=== PATIENT | male | born 1960 | race Two or more races ===

== ENCOUNTER 2016-12-09 08:49 | Inpatient (IN) | payer MEDICAID ==
[~2016-12-09] VITALS: Ht 165.1 cm; Wt 70.3 kg
[2016-12-09] MEDS ORDERED: NITROGLYCERIN PACKET 1 GM PACKET TD ONE (09:00)
[2016-12-09] MEDS ORDERED: ASPIRIN 325 MG TABLET PO ONE (09:00)
[2016-12-09] MEDS ORDERED: ASPIRIN 81 MG TAB.CHEW ONE ×2 (09:06→09:09)
[2016-12-09] MEDS ORDERED: NITROGLYCERIN PACKET 1 GM PACKET ONE (09:06)
[2016-12-09 09:26] LABS: BASOPHILS % (AUTO) 0.8 % (0.0-2.0); EOSINOPHILS # (AUTO) 0.2 /CMM (0.0-0.7); EOSINOPHILS % (AUTO) 2.7 % (0.0-6.0); HEMATOCRIT 43 % (39-51); HEMOGLOBIN 14.5 g/dL (13.5-17.5); LYMPHOCYTES # (AUTO) 2.3 /CMM (0.8-4.8); LYMPHOCYTES % (AUTO) 35.6 % (20.0-44.0); MEAN CORPUSCULAR HEMOGLOBIN 31 PG (26.0-33.0); MEAN CORPUSCULAR HGB CONC 34 g/dl (31.0-36.0); MEAN CORPUSCULAR VOLUME 91 fL (80-96); MONOCYTES # (AUTO) 0.4 /CMM (0.1-1.30); NEUTROPHILS # (AUTO) 3.5 /CMM (1.8-8.9); NEUTROPHILS % (AUTO) 54.9 % (43.0-81.0); PLATELET COUNT (AUTO) 165 /CMM (150-450); RDW COEFFICIENT OF VARIATION 13.6 (11.5-15.0); RED BLOOD CELL COUNT(AUTO) 4.69 MIL/uL (4.5-6.0); WHITE BLOOD COUNT (AUTO) 6.4 K/uL (4.3-11.0)
[2016-12-09 09:34] LABS: CALCIUM, SERUM 8.5 mg/dL (8.5-10.1); CARBON DIOXIDE 28 mmol/L (21-32); CHLORIDE 104 mmol/L (98-107); CREATININE 1.3 mg/dL (0.6-1.3); GLUCOSE 141 mg/dL (74-106); POTASSIUM 3.6 mmol/L (3.5-5.1); SODIUM SERUM 143 mmol/L (136-145); UREA NITROGEN, BLOOD 14 mg/dL (7-18)
[2016-12-09 09:42] LABS: TROPONIN I < 0.017 ng/mL (0.00-0.056)
[2016-12-09] MEDS ORDERED: LORAZEPAM INJ 2 MG/ML VIAL ONE (10:18)
[2016-12-09] MEDS ORDERED: LORAZEPAM INJ 2 MG/ML VIAL IV ONE (10:30)
[2016-12-09 10:39] LABS: D-DIMER 0.19 mg/L(FEU (0.17-0.50); INR 0.92 (0.87-1.13); PROTHROMBIN TIME 9.8 SECS (9.5-12.7)
[2016-12-09 11:45] VITALS: BP 110/78
[2016-12-09] MEDS ORDERED: LORAZEPAM 1 MG TABLET PO PRN (14:30)
[2016-12-09] MEDS ORDERED: NITROGLYCERIN 0.4 MG/TAB BOTTLE SL PRN (14:30)
[2016-12-09] MEDS ORDERED: ONDANSETRON HCL/PF 4 MG/2 ML VIAL IVP PRN (14:30)
[2016-12-09] MEDS ORDERED: DOCUSATE SODIUM 100 MG CAPSULE PO PRN (14:30)
[2016-12-09] MEDS ORDERED: MORPHINE SULFATE INJ 2 MG/ML DISP.SYRIN IV PRN (14:30)
[2016-12-09] MEDS: IV NS 0.9% 1,000 ML IV PRN (15:36)
[2016-12-09 16:00] VITALS: BP 102/63
[2016-12-09 20:00] VITALS: BP 118/75
[2016-12-09] MEDS: CARVEDILOL 6.25 MG TABLET PO SCH (21:00)
[2016-12-09] MEDS: SIMVASTATIN 20 MG TABLET PO SCH (22:17)
[2016-12-09] MEDS: ACETAMINOPHEN 325 MG TABLET PO PRN (22:20)
[2016-12-10] VITALS (9 sets, daily range): BP systolic 101–125; BP diastolic 61–76
[2016-12-10] MEDS: IV NS 0.9% 1,000 ML IV PRN ×2 (03:30→16:20)
[2016-12-10 06:50] LABS: BASOPHILS % (AUTO) 0.4 % (0.0-2.0); EOSINOPHILS # (AUTO) 0.1 /CMM (0.0-0.7); EOSINOPHILS % (AUTO) 1.4 % (0.0-6.0); HEMATOCRIT 40 % (39-51); HEMOGLOBIN 13.4 g/dL (13.5-17.5); LYMPHOCYTES # (AUTO) 1.3 /CMM (0.8-4.8); LYMPHOCYTES % (AUTO) 15.2 % (20.0-44.0); MEAN CORPUSCULAR HEMOGLOBIN 31 PG (26.0-33.0); MEAN CORPUSCULAR HGB CONC 34 g/dl (31.0-36.0); MEAN CORPUSCULAR VOLUME 92 fL (80-96); MONOCYTES # (AUTO) 0.4 /CMM (0.1-1.30); MONOCYTES % (AUTO) 5.3 % (2.0-12.0); NEUTROPHILS # (AUTO) 6.4 /CMM (1.8-8.9); NEUTROPHILS % (AUTO) 77.7 % (43.0-81.0); PLATELET COUNT (AUTO) 148 /CMM (150-450); RDW COEFFICIENT OF VARIATION 13.8 (11.5-15.0); RED BLOOD CELL COUNT(AUTO) 4.31 MIL/uL (4.5-6.0); WHITE BLOOD COUNT (AUTO) 8.3 K/uL (4.3-11.0)
[2016-12-10 07:12] LABS: CALCIUM, SERUM 8.2 mg/dL (8.5-10.1); PHOSPHORUS 3.3 mg/dL (2.5-4.9); POTASSIUM 4.1 mmol/L (3.5-5.1)
[2016-12-10 07:48] LABS: INR 0.96 (0.87-1.13); PROTHROMBIN TIME 10.3 SECS (9.5-12.7)
[2016-12-10] MEDS: ACETAMINOPHEN 325 MG TABLET PO PRN ×2 (08:12→15:13)
[2016-12-10] MEDS: ASPIRIN 81 MG TAB.CHEW PO SCH (08:19)
[2016-12-10] MEDS: CARVEDILOL 6.25 MG TABLET PO SCH ×2 (08:19→21:22)
[2016-12-10] MEDS ORDERED: ACETAMINOPHEN 650 MG/20.3 ML UDC NG PRN (12:00)
[2016-12-10] MEDS ORDERED: UREA 10% -AHA 4% CREAM 57 GM TUBE TP ONE (12:00)
[2016-12-10] MEDS: MORPHINE SULFATE INJ 2 MG/ML DISP.SYRIN IV PRN (20:32)
[2016-12-10] MEDS: SIMVASTATIN 20 MG TABLET PO SCH (21:22)
[2016-12-10] MEDS ORDERED: MIRTAZAPINE 15 MG TABLET PO SCH (22:00)
[2016-12-11] MEDS: IV NS 0.9% 1,000 ML IV PRN (01:05)
[2016-12-11] MEDS: MORPHINE SULFATE INJ 2 MG/ML DISP.SYRIN IV PRN ×2 (01:21→05:47)
[2016-12-11 08:00] VITALS: BP 103/67
[2016-12-11 08:58] VITALS: BP 103/67
[2016-12-11] MEDS: CARVEDILOL 6.25 MG TABLET PO SCH (08:58)
[2016-12-11] MEDS: ASPIRIN 81 MG TAB.CHEW PO SCH (08:58)
[2016-12-11] MEDS ORDERED: MIRT15TA PO (10:38)
== END 2016-12-11 13:30 | disposition home or self-care (01) | DRG 203 ==
LOC: ER 08:51 → TELE 11:36 → MED 12-10 20:01
PROVIDERS: ADMIT Internal Medicine; ATTEND Internal Medicine
DX: R07.89 Other chest pain (principal); F33.2 Major depressive disorder, recurrent severe without psychotic features; F43.20 Adjustment disorder, unspecified; E86.0 Dehydration; F41.0 Panic disorder [episodic paroxysmal anxiety]; R73.03 Prediabetes; Z63.4 Disappearance and death of family member; Z79.82 Long term (current) use of aspirin; I95.1 Orthostatic hypotension; Z98.890 Other specified postprocedural states
CPT/HCPCS: 36415; 70450-TC; 71010-TC; 80048-TC; 80061-TC; 82150-TC; 83690-TC; 83735-TC; 84100-TC; 84484-TC; 85025-TC; 85378-TC; 85610-TC; 85730-TC; 87081-TC; 93307-TC; A4606; J2060; J2270; J7030; Z7610

== ENCOUNTER 2017-01-27 13:04 | Inpatient (IN) | payer MEDICAID ==
[~2017-01-27] VITALS: Ht 177.8 cm; Wt 74.8 kg
[~2017-01-27 13:04] MED LIST: MIRT15TA PO
--- NOTE | 2017-01-27 13:13 | NUR ---
Patient bib ra c/o dizziness and weakness. Patient is a/ox 4. Breathing even and unlabored. No sob. Vitals stable. Safety and comfort meaures in place. Awaiting MD orders.
--- NOTE | 2017-01-27 13:16 | NUR ---
EMT at bedside for EKG. IV intact on left hand, 20 G from on route.
[2017-01-27 13:27] LABS: BASOPHILS % (AUTO) 0.7 % (0.0-2.0); EOSINOPHILS # (AUTO) 0.2 /CMM (0.0-0.7); EOSINOPHILS % (AUTO) 4.7 % (0.0-6.0); HEMATOCRIT 42 % (39-51); LYMPHOCYTES # (AUTO) 1.6 /CMM (0.8-4.8); MEAN CORPUSCULAR HEMOGLOBIN 30 PG (26.0-33.0); MEAN CORPUSCULAR HGB CONC 33 g/dl (31.0-36.0); MEAN CORPUSCULAR VOLUME 91 fL (80-96); MONOCYTES # (AUTO) 0.3 /CMM (0.1-1.30); MONOCYTES % (AUTO) 7.2 % (2.0-12.0); NEUTROPHILS # (AUTO) 2.5 /CMM (1.8-8.9); NEUTROPHILS % (AUTO) 52.4 % (43.0-81.0); PLATELET COUNT (AUTO) 172 /CMM (150-450); RED BLOOD CELL COUNT(AUTO) 4.65 MIL/uL (4.5-6.0); WHITE BLOOD COUNT (AUTO) 4.6 K/uL (4.3-11.0)
[2017-01-27] MEDS ORDERED: IV NS 0.9% 500 ML BAG IV ONE (13:30)
--- NOTE | 2017-01-27 13:32 | NUR ---
[employer]ES [employer]ENT [employer] AT BEDSIDE.
[2017-01-27 13:40] LABS: CALCIUM, SERUM 8.4 mg/dL (8.5-10.1); CARBON DIOXIDE 29 mmol/L (21-32); CHLORIDE 103 mmol/L (98-107); CREATININE 1.1 mg/dL (0.6-1.3); GLUCOSE 118 mg/dL (74-106); POTASSIUM 3.5 mmol/L (3.5-5.1); SODIUM SERUM 138 mmol/L (136-145); UREA NITROGEN, BLOOD 15 mg/dL (7-18)
[2017-01-27 13:49] LABS: TROPONIN I < 0.017 ng/mL (0.00-0.056)
[2017-01-27] MEDS ORDERED: IV NS 0.9% 250 ML IV ONE (14:12)
[2017-01-27] MEDS ORDERED: IOHEXOL-350 100 ML VIAL IV ONE (14:12)
--- NOTE | 2017-01-27 14:17 | NUR ---
CALLED NURSING SUP. FOR TELE BED
--- NOTE | 2017-01-27 14:22 | NUR ---
WAITING FOR GOOD IV LINE BEFORE CTA SCANS, GIFTY TROTTER IS AWARE.
[2017-01-27] MEDS ORDERED: MECLIZINE HCL 25 MG TABLET ONE (14:28)
[2017-01-27] MEDS ORDERED: ONDANSETRON HCL/PF 4 MG/2 ML VIAL ONE (14:28)
[2017-01-27] MEDS ORDERED: DIAZEPAM 5 MG/ML 2 ML DISP.SYRIN IV ONE (14:30)
[2017-01-27] MEDS ORDERED: MECLIZINE HCL 12.5 MG TABLET PO ONE (14:30)
[2017-01-27] MEDS ORDERED: ONDANSETRON HCL/PF 4 MG/2 ML VIAL IV ONE (14:30)
--- NOTE | 2017-01-27 14:30 | NUR ---
NEW IV STARTED ON RAC, 18 G, FOR CTA.
[2017-01-27 14:41] LABS: ALBUMIN 3.7 g/dL (3.4-5.0); BILIRUBIN,DIRECT 0.1 mg/dL (0.0-0.2); BILIRUBIN,TOTAL 0.4 mg/dL (0.2-1.0)
--- NOTE | 2017-01-27 14:45 | NUR ---
DIAZEPAM UNAVAILALBE THRU PHARMACY. DR. APARICIO INFORMED AND ORDERED TO CANCEL MED.
--- NOTE | 2017-01-27 14:50 | NUR ---
PATIENT RETURNED FROM CT IN STABLE CONDITION.
[2017-01-27 16:00] VITALS: BP 124/78
--- NOTE | 2017-01-27 16:05 | NUR ---
REPORT GIVEN TO NEEMA DURBIN FOR ADMISSION
--- NOTE | 2017-01-27 16:10 | NUR ---
PATIENT TRANSPORTED TO [facility] VIA ACLS PROTOCOL. NEEMA DURBIN TO PROVIDE MARILOU.
--- NOTE | 2017-01-27 16:20 | NUR ---
SCREW DRIVER OPERATOR AM NOTES ADMITTED PT FROM ER WITH DX OF VERTIGO.PT STILL C/O DIZZINESS AT THIS TIME.STABLE V/S.ASSISTED TO THE TOILET WITH FALL PRECAUTIONS.IVF ADMINISTERED ORDERED.IV H/L INTACT LT HAND AND RT AC.ENCOURAGED FLUIDS.FOR PT EVAL.DENIES ANY DIZZINESS OR DISCOMFORT.PT STATED THAT HE HAD THIS EPISODE A MONTH AGO AND WAS ADMITTED HERE IN [facility] FOR 5 DAYS.INSTRUCTED TO CALL FOR ASSISTANCE WHEN GOING TO THE TOILET.PT VERBALIZED UNDERSTANDING OF INSTRUCTIONS GIVEN,CALL LIGHT PLACED WITHIN REACH.
[2017-01-27] MEDS ORDERED: Z GUARD REMEDY 2 OZ OINT TP PRN (16:30)
[2017-01-27] MEDS ORDERED: MAGNESIUM HYDROXIDE 30 ML UDC PO PRN (16:30)
[2017-01-27] MEDS ORDERED: HYDROCODONE/APAP 5/325MG 1 EACH TABLET PO PRN (16:30)
[2017-01-27] MEDS ORDERED: ONDANSETRON HCL/PF 4 MG/2 ML VIAL IVP PRN (16:30)
[2017-01-27] MEDS ORDERED: MAG HYDROX/AL HYDROX/SIMETH 30 ML UDC PO PRN (16:30)
[2017-01-27] MEDS: IV NS 0.9% 1,000 ML IV PRN (18:06)
--- NOTE | 2017-01-27 19:45 | NUR ---
COMMUTATOR INSPECTOR NOTES RECEIVED ON BED,CLAIMED HE'S STILL DIZZY,APPEARS WEAK AT THE MOMENT,ABLE TO AMBULATE TO THE TOILET WITH ASSIST.PRESENT IVF INFUSING WELL ON LEFT HAND,SITE PATENT.FALLON CHEST PAIN AT THE MOMENT.CALL LIGHT IN REACH,NEEDS ANTICIPATED.
[2017-01-27 20:17] VITALS: BP 107/73
[2017-01-27 22:00] VITALS: BP 107/73
[2017-01-28] VITALS (9 sets, daily range): BP systolic 98–144; BP diastolic 63–84
--- NOTE | 2017-01-28 | NUR ---
MS RN NOTES SLEEPING WITH HOB ELEVATED.UNABLE TO LIE FLAT DUE TO DIZZINESS
--- NOTE | 2017-01-28 07:02 | NUR ---
TECH BRAZER TESTER NOTES AWAKE,CLAIMED HE'S STILL DIZZY A LITTLE BIT,ABLE TO AMBULATE TO THE TOILET ASSISTED BY SHAYLEE DUMONT.IN NO ACUTE DISTRESS.WILL ENDORSE TO DAY NURSE FOR MAIRLOU.
[2017-01-28 07:19] LABS: BASOPHILS % (AUTO) 0.6 % (0.0-2.0); EOSINOPHILS # (AUTO) 0.1 /CMM (0.0-0.7); EOSINOPHILS % (AUTO) 1.8 % (0.0-6.0); HEMATOCRIT 40 % (39-51); HEMOGLOBIN 13.6 g/dL (13.5-17.5); LYMPHOCYTES # (AUTO) 1.3 /CMM (0.8-4.8); LYMPHOCYTES % (AUTO) 22.6 % (20.0-44.0); MEAN CORPUSCULAR HEMOGLOBIN 31 PG (26.0-33.0); MEAN CORPUSCULAR HGB CONC 34 g/dl (31.0-36.0); MEAN CORPUSCULAR VOLUME 92 fL (80-96); MONOCYTES # (AUTO) 0.4 /CMM (0.1-1.30); MONOCYTES % (AUTO) 7.1 % (2.0-12.0); NEUTROPHILS % (AUTO) 67.9 % (43.0-81.0); PLATELET COUNT (AUTO) 168 /CMM (150-450); RDW COEFFICIENT OF VARIATION 14.1 (11.5-15.0); WHITE BLOOD COUNT (AUTO) 5.9 K/uL (4.3-11.0)
[2017-01-28] MEDS: IV NS 0.9% 1,000 ML IV PRN ×2 (07:40→21:41)
[2017-01-28 07:46] LABS: CALCIUM, SERUM 8.5 mg/dL (8.5-10.1); PHOSPHORUS 3.6 mg/dL (2.5-4.9); POTASSIUM 3.7 mmol/L (3.5-5.1)
--- NOTE | 2017-01-28 08:00 | NUR ---
dr. pryor,dr. lora in to see pt. discussed with infant childcare provider about pounding in head,but experiencing no pain.
[2017-01-28] MEDS: ACETAMINOPHEN 325 MG TABLET PO PRN (12:47)
--- NOTE | 2017-01-28 12:47 | NUR ---
given tylenol 650 mg po for head pounding.
--- NOTE | 2017-01-28 18:00 | NUR ---
no change in status,family visiting.
--- NOTE | 2017-01-28 19:30 | NUR ---
RN NOTES RECEIVED PATIENT IN BED AWAKE, AO X 3, ABLE TO MAKE NEEDS KNOWN. NO ACUTE DISTRESS NOTED. DENIES ANY PAIN AT THIS TIME. TELE READING SR HR 69. DENIES ANY DIZZINESS AT THIS TIME. IV SITES PATENT, INTACT; FLUSHED. SAFETY REMINDERS GIVEN. ON LOW BED WITH BILATERAL UPPER SIDE RAILS UP. CALL LIGHT WITHIN EASY REACH. WILL CONTINUE TO MONITOR.
[2017-01-28] MEDS: ZOLPIDEM TARTRATE 5 MG TABLET PO PRN (21:41)
[2017-01-29] VITALS: BP 99/55
[2017-01-29 04:00] VITALS: BP 112/70
--- NOTE | 2017-01-29 07:03 | NUR ---
RN NOTES PATIENT ASLEEP, EASILY AROUSABLE. RESPIRATIONS EVEN. NO SIGNS OF PAIN NOTED AT THIS TIME. NEEDS ATTENDED. SAFETY PRECAUTIONS AND COMFORT MEASURES IN PLACE. WILL GIVE REPORT TO DAY SHIFT FOR CONTINUITY OF CARE.
[2017-01-29 08:00] VITALS: BP 120/87
--- NOTE | 2017-01-29 08:17 | NUR ---
MEDICAL RECORD CLERK NOTES PT RESTING IN BED. NO PAIN REPORTED. SINUS RHYTHM 69. KEPT PATIENT COMFORTABLE. CALL LIGHT WITHIN REACH.
[2017-01-29 12:00] VITALS: BP 126/64
--- NOTE | 2017-01-29 13:00 | NUR ---
RN MS NOTES PT IN BED, AWAKE, ALERT AND ORIENTED, NO COMPLAINT OF PAIN OR ANY DISCOMFORT, ABLE TO AMBULATE TO THE BATHROOM WITH STANDBY ASSIST, CALL LIGHT WITHIN REACH, IV FLUIDS INFUSING WELL, PT INFORMED OF CURRENT PLAN OF CARE, VERBALIZED APPRECIATION AND UNDERSTANDING.
[2017-01-29] MEDS: IV NS 0.9% 1,000 ML IV PRN (15:01)
[2017-01-29 16:00] VITALS: BP 130/68
--- NOTE | 2017-01-29 18:38 | NUR ---
RN CLOSING NOTES PT RESTING IN BED WITH FRIENDS AT BEDSIDE. AWAKE, ALERT AND ORIENTED. NO COMPLAINTS OF PAIN. IV RIGHT AC INFUSING NS 75ML/HR. TOLERATING IV FLUIDS WELL. AMBULATES TO THE RR WITH ASSISTANCE. PT CALM AND COMFORTABLE. CALL LIGHT WITHIN REACH.
--- NOTE | 2017-01-29 19:40 | NUR ---
MS RN NOTE: PATIENT RESTING IN BED, NO ACUTE DISTRESS NOTED, FRIENDS AT BEDSIDE. BREATHING EVEN AND UNLABORED, NO SOB NOTED. IV TO LEFT HAND AND RAC IN PLACE, INFUSING NS AT 75 ML/HR. BED LOCKED AND IN LOWEST POSITION, CALL LIGHT IN REACH. WILL CONTINUE TO MONITOR.
[2017-01-29 20:00] VITALS: BP 126/76
[2017-01-29] MEDS: ZOLPIDEM TARTRATE 5 MG TABLET PO PRN (22:54)
[2017-01-29] MEDS: ACETAMINOPHEN 325 MG TABLET PO PRN (22:56)
--- NOTE | 2017-01-29 23:00 | NUR ---
MS RN NOTE: PATIENT REQUESTING FOR SLEEPING MEDICATIONS, AMBIEN 5MG 1 TAB ORAL GIVEN PER MD ORDER. WILL CONTINUE TO MONITOR.
--- NOTE | 2017-01-30 06:25 | NUR ---
MS RN NOTE: PATIENT RESTING IN BED, NO ACUTE DISTRESS NOTED. BREATHING EVEN AND UNLABORED, NO SOB NOTED. IV TO LEFT HAND AND RAC IN PLACE, INFUSING NS AT 75 ML/HR. BED LOCKED AND IN LOWEST POSITION, CALL LIGHT IN REACH. WILL ENDORSE TO DAY NURSE TO CONTINUE WITH PLAN OF CARE.
[2017-01-30] MEDS: IV NS 0.9% 1,000 ML IV PRN (06:53)
[2017-01-30] MEDS: ACETAMINOPHEN 325 MG TABLET PO PRN ×2 (07:47→22:04)
--- NOTE | 2017-01-30 07:58 | NUR ---
MS RN OPENING NOTE PATIENT IS ALERT AND ORIENTED x4. PATIENT STATES 3/10 FOR PAIN HAS A THROBBING HEADACHE. PAIN MEDICATION GIVEN, WILL RECHECK. NO SOB OR DISTRESS NOTED. CALL LIGHT WITHIN REACH. SAFETY MEASURES IMPLEMENTED IV ON RIGHT AC 18G INTACT AND PATENT NO REDNESS OR SWELLING NOTED. IVF RUNNING AT THIS TIME; NS AT 75 ML/HR, TOLERATING WELL. PATIENT TO BE SEEM BY NEUROLOGIST TODAY. WILL CONTINUE TO MONITOR THROUGHOUT SHIFT.
[2017-01-30 08:00] VITALS: BP 126/82
[2017-01-30 10:55] VITALS: BP_SYST 120; BP_SYST 126; BP_SYST 128; BP_DIAS 71; BP_DIAS 81; BP_DIAS 84
--- NOTE | 2017-01-30 12:15 | NUR ---
MS RN NOTE DID PATIENT'S ORTHOSTATIC BLOOD PRESSURE STANDIN/81 P:71, SITTIN/84 P:67, LAYIN/71 P:60. AWAITING FOR URINE SAMPLE
[2017-01-30 16:00] VITALS: BP 120/73
--- NOTE | 2017-01-30 18:43 | NUR ---
MS RN CLOSING NOTE PATIENT IS ALERT AND ORIENTED x4. NO PAIN AT THIS TIME. NO SOB OR DISTRESS NOTED. CALL LIGHT WITHIN REACH AT ALL TIMES. SAFETY MEASURES IMPLEMENTED. ABLE TO COMMUNICATE NEEDS. LEFT HAND IV INTACT AND PATENT NO REDNESS OR SWELLING NOTED. IVF RUNNING AT THIS TIME, 75ML/HR TOLERATING WELL. AWAITING FOR PSYCH CONSULT, PATIENT IS BECOMING ANXIOUS AND STRESSED HE BEGINS TO OVERWHELM HIMSELF DUE TO CARE AND HIS CONDITION. PRIMARY MD AWARE. ONCE CLEARED BY NEURO AND PSYCH PATIENT CAN BE DISCHARGED PER RADHA. ORTHOSTATI BLOOD PRESSURE TAKEN AND DOCUMENTED. AWAITING URINE SAMPLE. WILL ENDORSE TO FRESH FOODS CAKE DECORATOR NURSE FOR MARILOU
--- NOTE | 2017-01-30 19:20 | NUR ---
MS/RN OPENING NOTES PT RECEIVED SITTING IN THE CHAIR, ON RA, BREATHING EVEN AND UNLABORED. DENIES SOB AND NOTES A SLIGHT HEADACHE. OFFERED TYLENOL BUT WOULD LIKE TO TAKE IT LATER ON TONIGHT WITH SLEEPING PILL. IV TO LEFT HAND AND RAC PATENT AND INTACT, RUNNING IVF ORDERED. BED IN LOW/LOCKED POSITION, CALL LIGHT IN REACH. SIDE RAILS UPX2. ENCOURAGED PT NOT TO GET OUT OF BED WITHOUT ASSISTANCE. PT VERBALIZED UNDERSTANDING. WILL CONTINUE TO MONITOR
[2017-01-30 20:00] VITALS: BP 124/82
[2017-01-30] MEDS: ZOLPIDEM TARTRATE 5 MG TABLET PO PRN (22:04)
[2017-01-31] MEDS: ZOLPIDEM TARTRATE 5 MG TABLET PO PRN ×2 (00:23→22:18)
--- NOTE | 2017-01-31 00:33 | NUR ---
MS/RN NOTES FOR SOME REASON EMAR SHOWING THAT I ADMINISTERED AMBIEN A SECOND TIME AT 0023 WHICH IS AN ERROR. PT ONLY GIVEN AMBIEN AT 2204.
[2017-01-31] MEDS: IV NS 0.9% 1,000 ML IV PRN ×2 (01:49→22:30)
[2017-01-31] MEDS: ACETAMINOPHEN 325 MG TABLET PO PRN ×2 (06:10→22:17)
--- NOTE | 2017-01-31 06:14 | NUR ---
MS/RN NOTES PT COMPLAINING OF SQUEEZING HEADACHE TO THE ANTERIOR OF THE HEAD. REQUESTING TYLENOL. ADMINISTERED ORDERED. URINE SAMPLE COLLECTED.
[2017-01-31 07:02] LABS: APPEARANCE,URINE CLEAR (CLEAR); BILIRUBIN,URINE NEGATIVE (NEGATIVE); BLOOD, URINE NEGATIVE Ery/uL (NEGATIVE); COLOR,URINE YELLOW (YELLOW); KETONES,URINE NEGATIVE (NEGATIVE); LEUKOCYTE ESTERASE ,URINE NEGATIVE (NEGATIVE); NITRITE, URINE NEGATIVE (NEGATIVE); PROTEIN,URINE NEGATIVE (NEGATIVE); UGLUCOSE NEGATIVE (NEGATIVE); UROBILINOGEN,URINE 0.2 EU/dL (0.2)
--- NOTE | 2017-01-31 07:11 | NUR ---
MS/RN CLOSING NOTES PT ASLEEP, EASILY AROUSABLE TO NAME. A/OX4. ON RA, BREATHING EVEN AND UNLABORED. DENIES SOB OR PAIN AT THIS TIME. IV TO LEFT HAND AND RAC PATENT AND INTACT RUNNING IVF ORDERED. PT SLEPT WELL DURING SHIFT POST ADMINISTRATION OF AMBIEN. UNABLE TO COLLECT URINE SAMPLE. POSSIBLE PSYCH CONSULT TODAY WITH DR. CERVANTES. REASSURANCE PROVIDED PRN. BED IN LOW/LOCKED POSITION, CALL LIGHT IN REACH. SIDE RAILS UPX2. WILL ENDORSE TO AM SHIFT MARILOU.
--- NOTE | 2017-01-31 07:30 | NUR ---
AM RN NOTE Received patient awake, A/O X4 verbally responsive able to make needs known. Denies any headache at this time. IV site intact and patent. Bed in low locked position. Will continue to monitor. Call light with in reach.
[2017-01-31 08:00] VITALS: BP 105/67
--- NOTE | 2017-01-31 08:00 | NUR ---
AM RN NOTE New order given by Dr. Treviño (Neuro) for MRI head. Called radiology and spoke with Ashwini, will do MRI today but doesn't have exact time that when it will be done. Patient made aware.
--- NOTE | 2017-01-31 10:45 | NUR ---
AM RN NOTE Patient came back from downstairs after having MRI procedure done.
--- NOTE | 2017-01-31 15:36 | NUR ---
AM RN NOTE Dr. Colby (Psychiatrist) came in to see patient and he (patient) went downstairs for MRI orbit, face and neck. Per Dr. Colby, he will see pt tomorrow.
[2017-01-31 16:00] VITALS: BP_SYST 105; BP_SYST 125; BP_DIAS 67; BP_DIAS 74
--- NOTE | 2017-01-31 16:00 | NUR ---
AM RN NOTE Patient awake came back downstairs after having MRI of orbits, face and neck done.
--- NOTE | 2017-01-31 18:55 | NUR ---
AM RN NOTE Patient awake, visiting with family member at this time. No acute distress noted. All needs met and attended in timely manner. Will endorse care to next shift.
--- NOTE | 2017-01-31 19:10 | NUR ---
MS/RN NOTES RECEIVED PT IN STABLE CONDITION. A&OX4. BREATHING EVENLY ON RA. R AC IV #18G WITH NS @ 75 ML/HR INFUSING WELL, SITE CDI. PATIENT MADE AWARE OF PLAN OF CARE INCLUDING PSYCH CONSULT TOMORROW AND VERBALIZED UNDERSTANDING. DENIES PAIN AT THIS TIME AND CONCERNED ABOUT NOT BEING ABLE TO SLEEP WHEN HE HAS A ROOMMATE. BED AT LOWEST POSITION AND LOCKED, SRX2 UP, HOB ELEVATED. SIDE TABLE, CALL HAWLEY AND PERSONAL BELONGINGS INCLUDING URINAL WITHIN REACH. WILL CONTINUE TO MONITOR. VISITOR AT BEDSIDE.
[2017-01-31] MEDS ORDERED: GADOVERSETAMIDE 2.5 MMOL/5 ML VIAL IJ ONE (19:12)
[2017-01-31 20:00] VITALS: BP 130/82
[2017-01-31 22:16] VITALS: BP 128/77
--- NOTE | 2017-02-01 06:44 | NUR ---
MS/RN NOTES NO SIGNIFICANT CHANGES. CONTINUES TO SLEEP ON RA WITH NO EPISODE OF DIZZINESS. IVF IN PROGRESS. AMBULATING AND VOIDING WELL. TYLENOL GIVEN EARLY IN SHIFT FOR NAVARRO, WITH RELIEF. NO OTHER COMPLAINTS MADE. BED AT LOWEST POSITION AND LOCKED, HOB ELEVATED, SRX2 UP, SIDE TABLE AND CALL HAWLEY WITHIN REACH. WILL ENDORSE TO AM SHIFT FOR CONTINUITY OF CARE.
--- NOTE | 2017-02-01 07:05 | NUR ---
MS RN OPENING NOTES RECEIVED PT FROM NIGHTSHIFT NURSE IN STABLE CONDITION. PT IS A/O X4. SHARON SOB OR SIGNS OF DISTRESS NOTED. BREATHING IS EVEN AND UNLABORED. PT DENIES ANY CHEST PAIN OR HEADACHE AT THIS TIME. IV PRESENT ON RIGHT AC 18G INFUSING NS @75ML/HR. PT IS TOLERATING INFUSION WELL. NO REDNESS OR SIGNS OF INFILTRATION NOTED. SECOND IV PRESENT ON LEFT HAND 20G. IV IS PATENT AND INTACT. BED IN LOW LOCKED POSITION, SIDE RAILS UP X2, CALL LIGHT WITHIN REACH. WILL CONTINUE TO MONITOR.
[2017-02-01 08:00] VITALS: BP 109/67
--- NOTE | 2017-02-01 15:58 | NUR ---
MS RN NOTES DR. CERVANTES CALLED REGARDING PSYCH EVAL. PER DR CERVANTES, HE WAS NOT AWARE THAT THE PATIENT WAS STILL HERE HOWEVER GAVE THE ORDER TO WRITE A PRESCRIPTION FOR ZOLOFT 50MG DAILY. WILL MAKE MD AND CHARGE AWARE
[2017-02-01 16:00] VITALS: BP 130/74
--- NOTE | 2017-02-01 17:18 | NUR ---
MS GROUP EXERCISE INSTRUCTOR NOTES PT WAS DISCHARGED FROM UNIT IN STABLE CONDITION. ALL NEEDS WERE MET DURING SHIFT AND ORDERS CARRIED OUT ACCORDINGLY. ALL DISCHARGE INSTRUCTIONS DISCUSSED WITH PATIENT. PT. VERBALIZED UNDERSTANDING OF DISCHARGE INSTRUCTIONS AND SIGNED ALL NECESSARY PAPERWORK. PRESCRIPTION FOR ZOLOFT WAS GIVEN AND TAKEN BY PATIENT. ALL BELONGINGS WERE TAKEN WITH PT. HE LEFT HOSPITAL SAFELY VIA PRIVATE VEHICLE DRIVEN BY HIS NEPHEW. FAUSTO ESCORTED PT TO VEHICLE AND WATCHED HE LEFT
== END 2017-02-01 17:00 | disposition home or self-care (01) | DRG 203 ==
LOC: ER 13:06 → TELE 15:56 → MED 01-29 14:04
PROVIDERS: ADMIT Internal Medicine; ATTEND Internal Medicine
DX: R07.89 Other chest pain (principal); I10 Essential (primary) hypertension; F41.9 Anxiety disorder, unspecified; E86.0 Dehydration; R73.03 Prediabetes
CPT/HCPCS: 36415; 70450-TC; 70496-TC; 70498-TC; 70540; 70553-TC; 71010-TC; 80048-TC; 80076-TC; 80305; 81000-TC; 82962-TC; 83735-TC; 84100-TC; 84484-TC; 85025-TC; 87081-TC; 93307-TC; A4606; A6402; A9579; J2405; J3360; J7030; J7040; J7050; J8597; Q9967; Z7610

== ENCOUNTER 2018-08-12 23:06 | Emergency (ER) | payer MEDICAID ==
[~2018-08-12] VITALS: Ht 165.1 cm; Wt 68.9 kg
[2018-08-12 23:50] VITALS: BP 141/95
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
--- NOTE | 2018-08-13 00:14 | NUR ---
AT BEDSIDE FOR EVAL
--- NOTE | 2018-08-13 00:25 | NUR ---
PT TAKEN TO RADIOLOGY VIA WHEELCHAIR.
[2018-08-13] MEDS ORDERED: IBUPROFEN 600 MG TABLET PO ONE ×2 (00:30→00:39)
--- NOTE | 2018-08-13 00:35 | NUR ---
PT RETURNED FROM RADIOLOGY VIA WHEELCHAIR. PT TOLERATED WELL.
== END 2018-08-13 01:38 | disposition home or self-care (01) ==
LOC: ER 23:10
DX: S16.1XXA Strain of muscle, fascia and tendon at neck level, initial encounter (principal); S39.012A Strain of muscle, fascia and tendon of lower back, initial encounter; V49.49XA Driver injured in collision with other motor vehicles in traffic accident, initial encounter; Y93.89 Activity, other specified; Y92.410 Unspecified street and highway as the place of occurrence of the external cause; Y99.8 Other external cause status
CPT/HCPCS: 72050-TC; 72110-TC

== ENCOUNTER 2023-06-20 00:35 | Emergency (ER) | payer MEDICAID, OTHER ==
[~2023-06-20] VITALS: Ht 165.1 cm; Wt 70.3 kg
[2023-06-20] MEDS: IBUPROFEN 600 MG TABLET PO ONE (01:21)
[2023-06-20] MEDS ORDERED: IBUPROFEN 600 MG TABLET ONE (01:21)
[2023-06-20] MEDS ORDERED: IBUP-1953 PO (02:29)
[2023-06-20 02:35] VITALS: BP 136/83; TEMP 97.8; O2SAT 97
== END 2023-06-20 02:38 | disposition home or self-care (01) ==
LOC: ER 00:40
DX: S13.4XXA Sprain of ligaments of cervical spine, initial encounter (principal); S39.92XA Unspecified injury of lower back, initial encounter; V49.49XA Driver injured in collision with other motor vehicles in traffic accident, initial encounter; Y93.89 Activity, other specified; Y92.89 Other specified places as the place of occurrence of the external cause; Y99.8 Other external cause status
CPT/HCPCS: 70450-TC; 72125-TC; 72131-TC

== ENCOUNTER 2023-09-04 10:36 | Emergency (ER) | payer OTHER ==
[~2023-09-04] VITALS: Ht 165.1 cm; Wt 71.7 kg
[~2023-09-04 10:36] MED LIST changes: +IBUP-1953 PO; -MIRT15TA PO
[2023-09-04 10:43] VITALS: TEMP 98.8
[2023-09-04 11:50] VITALS: BP 145/80; O2SAT 98
== END 2023-09-04 11:40 | disposition home or self-care (01) ==
LOC: ER 10:38
DX: R05.9 Cough, unspecified (principal); R07.89 Other chest pain
CPT/HCPCS: 71045-TC